=== PATIENT | female | born 1990 | race Caucasian/White ===

== ENCOUNTER → 2023-10-11 08:55 | Outpatient (CLI) | payer OTHER, MEDICAID, SELFPAY ==
--- NOTE | 2023-10-11 08:56 | ECG_ITS ---
APPROVED REPORT Exam: Resting ECG HR:71 bpm ECG Measurements Heart Rate 71 AXES CA 172 P 86 QRSd 86 QRS 96 QT 371 T 81 QTc 394 Conclusion SINUS RHYTHM BORDERLINE RIGHT AXIS DEVIATION [QRS AXIS > 90] BORDERLINE ECG UNCONFIRMED REPORT Electronically signed by : Sathya Chambers MD 10/11/2023 13:22:05
--- NOTE | 2023-10-11 09:03 | XR_ITS ---
FINAL REPORT CLINICAL HISTORY: chest pain, cough, bronchitis FINDINGS: Two views of the chest were obtained. The heart size and pulmonary vascularity are within normal limits. The mediastinum is normal. No acute pulmonary abnormality is identified. There is no pneumothorax. The bony thorax is intact. IMPRESSION: No active cardiopulmonary disease. Reviewed, Interpreted and Dictated by Henry Sanchez III, MD Transcribed by Christina Rodrigues Authenticated and [facility]
[2023-10-11 10:00] LABS: Basophils % 0.4 % (0.1-2.0); Eosinophils # 0.1 K/mm3 (0.0-0.4); Eosinophils % 2.4 % (0.1-12.0); Hematocrit 41.4 % (37.0-47.0); Hemoglobin 13.8 g/dL (12.2-16.2); Lymphocytes # 1.3 K/mm3 (0.7-4.5); Lymphocytes % 22.7 % (10-50); Mean Corpuscular HGB Conc 33.5 g/dL (31.8-35.4); Mean Corpuscular Hemoglobin 32.5 pg (27.0-31.2); Mean Corpuscular Volume 97.2 fl (81-99); Mean Platelet Volume 7.7 fl (7.4-10.4); Monocytes # 0.2 K/mm3 (0.1-1.0); Monocytes % 3.6 % (1.7-9.3); Neutrophils # 3.9 K/mm3 (1.8-7.8); Neutrophils % 70.9 % (37.0-80.0); Platelet Count 167 K/mm3 (142-424); Red Blood Count 4.26 M/mm3 (4.20-5.40); White Blood Count 5.5 K/mm3 (4.8-10.8)
[2023-10-11 10:43] LABS: Chloride 105 mmol/L (98-107); Potassium 3.9 mmoL/L (3.5-5.1); Sodium 138 mmol/L (136-145)
[2023-10-11 10:46] LABS: Alanine Aminotransferase 46 U/L (12-78); Albumin Level 3.9 g/dl (3.5-5.0); Albumin/Globulin Ratio 1.3 (1.1-1.8); Alkaline Phosphatase 67 U/L (38-126); Anion Gap 8.9 mEq/L (5-15); Aspartate Amino Transferase 28 U/L (14-36); Bilirubin,Total 0.6 mg/dl (0.2-1.3); Blood Urea Nitrogen 12 mg/dl (7-17); Calcium 8.4 mg/dl (8.4-10.2); Carbon Dioxide 28 mmol/L (22.0-30.0); Cholesterol 170 mg/dl (140-200); Estimated Glomerular Filt Rate 73 ml/min (>60); GFR (African American) 88 ML/MIN (>60); Globulin 2.9 g/dL (1.3-3.2); Glucose 62 mg/dl (74-100); Total Protein,Serum 6.8 g/dl (6.3-8.2); Triglycerides 93 mg/dl (30-150); VLDL Cholesterol 19 mg/dL (0-40)
[2023-10-11 10:47] LABS: Chol/HDL Ratio 3.9 (1-3.5); HDL Cholesterol 44 mg/dl (40-60)
[2023-10-11 10:57] LABS: Direct LDL Cholesterol 96.28 mg/dL (100-129)
[2023-10-11 11:06] LABS: Hemoglobin A1C 4.6 % (4.0-6.0)
== END ==
PROVIDERS: PCP Nurse Practitioner; Visit Provider Nurse Practitioner
DX: R07.9 Chest pain, unspecified (principal); R03.0 Elevated blood-pressure reading, without diagnosis of hypertension; E66.9 Obesity, unspecified; Z79.899 Other long term (current) drug therapy
CPT/HCPCS: 36415; 71046; 80053; 80061; 83036; 84443; 85025; 93005

== ENCOUNTER 2024-01-05 18:07 | Outpatient (CLI) | payer OTHER, SELFPAY ==
[2024-01-07 14:15] LABS: HIV Screen 4th Generation wRfx Non Reactive (Non Reactive); Rapid Plasma Reagin Ab Titer Non Reactive titer (NonRea<1:1)
[2024-01-09 05:29] LABS: Neisseria gonorrhoeae, NAA Negative (Negative)
[2024-01-10 10:12] LABS: Trichomonas Vaginalis, NAA Negative
[2024-01-10 10:14] LABS: HSV 2 IgG, Type Spec <0.91
== END 2024-01-05 23:59 ==
LOC: LAB.DROPOF 18:08
PROVIDERS: PCP Nurse Practitioner Family; Visit Provider Nurse Practitioner Family
DX: Z20.2 Contact with and (suspected) exposure to infections with a predominantly sexual mode of transmission (principal); Z11.4 Encounter for screening for human immunodeficiency virus [HIV]
CPT/HCPCS: 86593; 86695; 86703; 86790; 87491; 87591; 87661; G0432

== ENCOUNTER 2024-11-30 06:58 | Outpatient (CLI) | payer OTHER, SELFPAY ==
[2024-11-29 17:49] LABS: Microscopic, Urine URINE MICROSCOPIC (MICROSCOPIC)
[2024-11-29 18:14] LABS: Eosinophils # 0.1 K/mm3 (0.0-0.4); Hematocrit 44.6 % (37.0-47.0); Hemoglobin 14.6 g/dL (12.2-16.2); Mean Corpuscular HGB Conc 32.7 g/dL (31.8-35.4)
[2024-11-29 18:18] LABS: Basophils % 0.4 % (0.1-2.0); Eosinophils % 1.4 % (0.1-12.0); Lymphocytes # 2.2 K/mm3 (0.7-4.5); Lymphocytes % 38.4 % (10-50); Mean Corpuscular Hemoglobin 31.6 pg (27.0-31.2); Mean Corpuscular Volume 96.5 fl (81-99); Mean Platelet Volume 9.9 fl (7.4-10.4); Monocytes # 0.4 K/mm3 (0.1-1.0); Monocytes % 6.2 % (1.7-9.3); Neutrophils % 53.4 % (37.0-80.0); Platelet Count 184 K/mm3 (142-424); Red Blood Count 4.62 M/mm3 (4.20-5.40); White Blood Count 5.7 K/mm3 (4.8-10.8)
[2024-11-29 18:31] LABS: Appearance,Urine CLEAR (Clear); Bilirubin,Urine Negative (Negative); Blood, Urine Negative (Negative); Color,Urine YELLOW (Yellow); Glucose,Urine (UA) Negative (Negative); Ketones,Urine Negative (Negative); Leukocyte Esterase,Urine TRACE (Negative); Nitrate,Urine POSITIVE (Negative); Protein,Urine Negative (Negative); Urobilinogen,Urine 0.2 EU/dl (0.2)
[2024-11-29 18:39] LABS: Alanine Aminotransferase 16 U/L (12-78); Albumin Level 4.3 g/dl (3.5-5.0); Albumin/Globulin Ratio 1.7 (1.1-1.8); Alkaline Phosphatase 51 U/L (38-126); Anion Gap 10.6 mEq/L (5-15); Aspartate Amino Transferase 25 U/L (14-36); Bilirubin,Total 0.7 mg/dl (0.2-1.3); Blood Urea Nitrogen 15 mg/dl (7-17); Calcium 9.1 mg/dl (8.4-10.2); Carbon Dioxide 30 mmol/L (22.0-30.0); Chloride 102 mmol/L (98-107); Estimated Glomerular Filt Rate 72 ml/min (>60); GFR (African American) 87 ML/MIN (>60); Globulin 2.6 g/dL (1.3-3.2); Glucose 94 mg/dl (74-100); Potassium 4.6 mmoL/L (3.5-5.1); Sodium 138 mmol/L (136-145); Total Protein,Serum 6.9 g/dl (6.3-8.2)
[2024-11-29 18:56] LABS: T4 (Thyroxine) 6.2 ug/dl (5.53-11.0)
[2024-11-29 19:00] LABS: 25-OH Vitamin D, Total 29.2 ng/mL (30-100)
[2024-11-29 19:05] LABS: Bacteria,Urine 4+ /lpf
[2024-11-29 19:10] LABS: Thyroid Stimulating Hormone 0.74 uIU/mL (0.465-4.68)
[2024-11-29 19:43] LABS: HCG Qualitative, Serum Negative (Negative)
[2024-11-29 19:45] LABS: Iron 173 ug/dL (37-170)
[2024-11-29 19:54] LABS: Total Iron Binding Capacity 292 ug/dL (265-497)
[2024-11-29 20:21] LABS: Ferritin 20.6 ng/ml (6.24-137)
[2024-11-29 20:29] LABS: HIV Combo NEGATIVE (Negative)
[2024-11-29 20:34] LABS: Hepatitis C Ab Qual. W/ RFX NEGATIVE (Negative)
[2024-11-29 20:44] LABS: Folate 8.68 ng/mL
[2024-11-30 17:13] LABS: RPR W/RFX Titers Nonreactive (Nonreactive)
[2024-12-02 20:08] LABS: Neisseria gonorrhoeae, NAA Negative (Negative)
== END 2024-11-30 23:59 | disposition home or self-care (01) ==
LOC: LAB.DROPOF 06:59
PROVIDERS: PCP Nurse Practitioner Family; Visit Provider Nurse Practitioner Family
DX: Z20.2 Contact with and (suspected) exposure to infections with a predominantly sexual mode of transmission (principal); E55.9 Vitamin D deficiency, unspecified; N39.0 Urinary tract infection, site not specified; B96.20 Unspecified Escherichia coli [E. coli] as the cause of diseases classified elsewhere
CPT/HCPCS: 80053; 81001; 82306; 82728; 82746; 83540; 83550; 84436; 84443; 84703; 85025; 86592; 86803; 87086; 87088; 87186; 87389; 87491; 87591

== ENCOUNTER 2025-01-29 14:30 | Outpatient (CLI) | payer OTHER, SELFPAY | END 2025-01-29 23:59 | disposition home or self-care (01) | LOC: LAB.DROPOF 01-30 12:26 | PROVIDERS: PCP Nurse Practitioner; Visit Provider Nurse Practitioner | DX: N39.0 Urinary tract infection, site not specified (principal) | CPT/HCPCS: 87086; 87088 ==

== ENCOUNTER 2025-03-13 14:03 | Outpatient (CLI) | payer OTHER, SELFPAY | END 2025-03-13 23:59 | disposition home or self-care (01) | LOC: LAB.DROPOF 03-14 13:04 | PROVIDERS: PCP Nurse Practitioner Family; Visit Provider Nurse Practitioner Family | DX: N76.0 Acute vaginitis (principal) | CPT/HCPCS: 87086 ==